=== PATIENT | female | born 1960 | race Caucasian/White ===

== ENCOUNTER 2022-02-21 07:23 | Outpatient (CLI) | payer BC, SELFPAY ==
--- NOTE | ~2022-02-21 | DEXA_ITS ---
Bone Density Report Name: DENA SEQUEIRA Age: 61 Sex: Female Ethnicity: White Date of : 1960 Indication: postmenopausal; screening for osteoporosis; height loss; Referring Provider: Luigi, Emely Mcgrath Study: Bone densitometry was performed. Exam Date: February 21, 2022 Accession number: [id number] Bone Density: Region BMD T-score Z-score Classification AP Spine(L1-L4) 1.206 1.4 3.0 Normal Femoral Neck (Left) 0.648 -1.8 -0.4 Osteopenia Total Hip (Left) 0.861 -0.7 0.4 Normal Femoral Neck (Right) 0.676 -1.6 -0.2 Osteopenia Total Hip (Right) 0.850 -0.8 0.3 Normal Femoral Neck Mean 0.662 -1.7 -0.3 Osteopenia Total Hip Mean 0.856 -0.7 0.4 Normal World Health Organization criteria for BMD impression classify patients as: Normal (T-score at or above -1.0), Osteopenia (T-score between -1.0 and -2.5), or Osteoporosis (T-score at or below -2.5). 10-year Fracture Risk(1): Major Osteoporotic Fracture 11% Hip Fracture 2.3% Reported Risk Factors: [place] (), Neck BMD=0.648, BMI=32.9, smoking, alcohol use (1) FRAX(R) Version 3.08. Fracture probability calculated for an untreated patient. Fracture probability may be lower if the patient has received treatment. Clinical Information Provided by Patient: Smokes Has 3 or more alcoholic drinks per day Patient maximum height was 68 Menopause Age: 51 No regular weight bearing exercise Drinks caffeinated beverages Onset of menses at age 12 Number of children 1 Impression: The patient has low bone mass, based on the Left Femoral Neck T-score. The patient has risk factors, including: smoking, excessive alcohol use. Discussion: BONE DENSITY IS LOW AT ONE OR MORE SKELETAL SITES. This patient's lowest T-score is low at one or more skeletal sites. It meets the World Health Organization's (WHO) criteria for ?low bone mass? (T-score between -1.0 and -2.5). The patient's 10-year risk of fracture as calculated by FRAX is less than the threshold where pharmacological therapy is recommended by the National Osteoporosis Foundation (NOF). However, all treatment decisions require clinical judgment and consideration of individual patient factors, including patient preferences, comorbidities, previous drug use, risk factors not captured in the FRAX model (e.g., frailty, falls, vitamin D deficiency, increased bone turnover, interval significant decline in bone density) and possible under or overestimation of fracture risk by FRAX. The patient should follow a healthful lifestyle (good nutrition with adequate calcium and vitamin D, and appropriate weight-bearing exercise). Follow-Up: Consider repeating this study in 2 to 3 years to reassess this patient's status, or sooner if there is some new clinical indication. Reported
--- NOTE | ~2022-02-21 | CT_ITS ---
EXAMINATION: CT lung screening DATE: 02/21/2022 08:21 INDICATION: History of tobacco dependence. TECHNIQUE: Computed tomography (CT) of the chest was performed without intravenous contrast. The dose -length product was 186.96 mGy-cm. Automated exposure control and iterative reconstruction technique were employed. COMPARISON: No prior studies for comparison. FINDINGS: Heart size is normal. No significant pleural or pericardial effusion. There is a small fat- containing hernia posterior margin of the right lower thorax. No thoracic lymphadenopathy. There is a fissural nodule measuring 5 mm on the right, image 45. There is focal pleural thickening and postsur gical change in the right upper lobe. There is a 5 mm right lower lobe nodule at the pleural surface posteriorly, image 57. No endobronchial lesions. Mild emphysema. No pneumothorax. There is a 4 mm fis sural nodule on the right, image 57. There is a 5 mm pleural-based nodule in the left lower lobe post eriorly, image 61. No focal airspace consolidation. Mild thoracic spondylosis. IMPRESSION: 1. Lung-RADS category 2: Benign appearance or behavior. Continue annual screening with noncontrast lo w-dose chest CT in 12 months. Reviewed, dictated and finalized at location A. IMPRESSION: 1. Lung-RADS category 2: Benign appearance or behavior. Continue annual screeni ng with noncontrast low-dose chest CT in 12 months.
--- NOTE | ~2022-02-21 | US_ITS ---
US thyroid INDICATION: Hyperthyroidism TECHNIQUE: Real-time sonographic images of the thyroid gland were obtained. COMPARISON: No prior studies for comparison. FINDINGS: The right thyroid lobe measures 4.2 x 1.1 x 0.9 cm. The left thyroid lobe measures 3.5 x 1 .1 x 1 cm.. There is heterogeneous thyroid echotexture bilaterally with multiple small cysts. No denilson d thyroid masses are identified. There are normal-appearing bilateral cervical lymph nodes. Normal va scular flow is present. IMPRESSION: 1. Heterogeneous thyroid echotexture with multiple bilateral thyroid cysts, likely benign. Reviewed, dictated and finalized at location A. IMPRESSION: 1. Heterogeneous thyroid echotexture with multiple bilateral thyroid cysts, li rebeca benign.
--- NOTE | ~2022-02-21 | MM_ITS ---
EXAMINATION: MM screening vincent BI w lopez HISTORY: Screening mammogram TECHNIQUE: Craniocaudal and mediolateral oblique 3-D tomosynthesis images were obtained and synthetic 2-D images were generated. CAD analysis was submitted and interpreted. COMPARISON: 01/31/2018 BREAST PARENCHYMAL COMPOSITION: There are scattered areas of fibroglandular density. FINDINGS: There is no suspicious mass, calcification, or architectural distortion to suggest malignan cy in either breast. There has been no suspicious interval change. IMPRESSION: 1. No mammographic evidence of malignancy. 2. Recommend routine screening mammography in one year. BI-RADS Category 1: Negative Reviewed, dictated and finalized at location A.
== END 2022-02-21 07:24 | disposition home or self-care (01) ==
PROVIDERS: PCP Internal Medicine; Visit Provider Nurse Practitioner Family
DX: Z12.31 Encounter for screening mammogram for malignant neoplasm of breast (principal); Z78.0 Asymptomatic menopausal state; E05.90 Thyrotoxicosis, unspecified without thyrotoxic crisis or storm; Z12.2 Encounter for screening for malignant neoplasm of respiratory organs; Z87.891 Personal history of nicotine dependence
CPT/HCPCS: 71271; 76536; 77063; 77067; 77080

== ENCOUNTER 2022-03-16 09:08 | Outpatient (CLI) | payer BC, SELFPAY ==
--- NOTE | ~2022-03-16 | US_ITS ---
EXAMINATION: US right upper quadrant DATE: 03/16/2022 10:05 INDICATION: Elevated liver enzymes TECHNIQUE: Multiple grayscale and Doppler ultrasound images of the abdomen were obtained. COMPARISON: None FINDINGS: The pancreatic head and body are normal in appearance. The pancreatic tail is not visualized. Liver has normal contour, with a smooth surface. There is increased parenchymal echogenicity and coarsened echotexture consistent with diffuse hepatic steatosis. No liver lesion identified. No intrahepatic b iliary duct dilation suspected. Portal venous flow was seen in the hepatopetal, normal direction and has normal Doppler waveform. The gallbladder is normal in appearance. There is no cholelithiasis. Th e common bile duct measures 3 mm, which is normal. Sonographic Ramírez sign was reported as negative b y the chore tender.Visualized portion of the right kidney demonstrates normal contour and echogenicity with no hydronephrosis. IMPRESSION: 1. Diffuse hepatic steatosis. Reviewed, dictated and finalized at location B.
== END 2022-03-16 09:09 | disposition home or self-care (01) ==
LOC: CHSIMG 09:10
PROVIDERS: PCP Internal Medicine; Visit Provider Internal Medicine
DX: R94.5 Abnormal results of liver function studies (principal)
CPT/HCPCS: 76705

== ENCOUNTER 2022-07-07 15:02 | Outpatient (CLI) | payer BC, SELFPAY ==
--- NOTE | ~2022-07-07 | XR_ITS ---
EXAMINATION: XR foot RT min 3V DATE: 07/07/2022 15:47 INDICATION: Psoriatic arthritis. TECHNIQUE: 3 views of right foot standing were obtained. COMPARISON: None. FINDINGS: There is moderate hallux valgus. No fracture. There is mild osteoarthritis of first metatar sophalangeal joint and some of the interphalangeal joints and midfoot joints. There is screw fixation of distal tibia. There is plate and screw fixation of distal fibula. IMPRESSION: 1. Mild polyarticular osteoarthritis. 2. Moderate hallux valgus. Reviewed, dictated and finalized at location A. GER FLOAT
--- NOTE | ~2022-07-07 | XR_ITS ---
EXAMINATION: XR sacroiliac joints min 3V DATE: 07/07/2022 15:47 INDICATION: Psoriatic arthritis. TECHNIQUE: 3 views of the sacroiliac joints were obtained. COMPARISON: None. FINDINGS: Bone alignment is normal. No fracture. There is severe lumbar spondylosis. There is mild os teoarthritis of the sacroiliac joints. There is moderate right hip osteoarthritis and mild left hip o steoarthritis. IMPRESSION: 1. Mild osteoarthritis of the sacroiliac joints. No evidence of inflammatory arthropathy. Reviewed, dictated and finalized at location A. T ROCK LAYER IMPRESSION: 1. Mild osteoarthritis of the sacroiliac joints. No evidence of inflammatory ar thropathy.
--- NOTE | ~2022-07-07 | XR_ITS ---
EXAMINATION: XR hand BI arthritis min 3V DATE: 07/07/2022 15:47 INDICATION: Psoriatic arthritis. TECHNIQUE: 4 views of right hand and 4 views of left hand on a total of 7 radiographs were obtained. COMPARISON: None. FINDINGS: RIGHT HAND: Bone alignment is normal. No fracture. There is mild osteoarthritis of first carpometacar pal joint and third and fourth proximal interphalangeal joints. LEFT HAND: Bone alignment is normal. No fracture. There is moderate osteoarthritis of first carpometa carpal joint and mild osteoarthritis of second distal interphalangeal joint. IMPRESSION: 1. Polyarticular osteoarthritis. No evidence of inflammatory arthropathy. Reviewed, dictated and finalized at location A. INSERTER
--- NOTE | ~2022-07-07 | XR_ITS ---
EXAMINATION: XR foot LT min 3V DATE: 07/07/2022 15:47 INDICATION: Psoriatic arthritis. TECHNIQUE: 3 views of left foot standing were obtained. COMPARISON: None. FINDINGS: There is moderate hallux valgus. No fracture. There is mild osteoarthritis of first metatar sophalangeal joint and some the interphalangeal joints and midfoot joints. There is an enthesophyte a t plantar aspect of calcaneal tuberosity. IMPRESSION: 1. Polyarticular osteoarthritis. 2. Moderate hallux valgus. Reviewed, dictated and finalized at location A. NDER EMPLOYMENT SPECIALIST
== END 2022-07-07 15:03 | disposition home or self-care (01) ==
LOC: ANHIMG 15:06
PROVIDERS: PCP Internal Medicine
DX: L40.50 Arthropathic psoriasis, unspecified (principal); M19.041 Primary osteoarthritis, right hand; M19.042 Primary osteoarthritis, left hand; M53.3 Sacrococcygeal disorders, not elsewhere classified; M19.071 Primary osteoarthritis, right ankle and foot; M20.11 Hallux valgus (acquired), right foot; M19.072 Primary osteoarthritis, left ankle and foot; M20.12 Hallux valgus (acquired), left foot
CPT/HCPCS: 72202; 73130; 73630

== ENCOUNTER 2023-06-09 16:16 | Emergency (ER) | payer BC, SELFPAY ==
[2023-06-09 16:48] VITALS: BP 177/91; PULSE 78; RESP 18; TEMP 36.4; O2SAT 98
--- NOTE | 2023-06-09 16:50 | ED.FEMALEGU ---
HPI - Female Genitourinary General Chief complaint: Urogenital-Female Stated complaint: UTI Source: patient and RN notes reviewed Mode of arrival: ambulatory Limitations: no limitations History of Present Illness HPI Narrative: 62-year-old female presented for complaint of pressure with urinating, onset today. Endorses 2 days ago bilateral lower back pain, for which she increased water intake, used heating pad, and took aleve. States today pain is resolved. denies hematuria, nausea, vomiting, abdominal pain, flank pain, constipation, diarrhea, fevers or chills. Review of Systems Review of Systems: CONSTITUTIONAL: Denies body aches, fever, chills, or sweats. CARDIOVASCULAR: Denies chest pain, palpitations, or edema. RESPIRATORY: Denies cough or dyspnea. GASTROINTESTINAL: Denies abdominal pain, nausea, vomiting, or diarrhea. GENITOURINARY: Reports dysuria, denies frequency, urgency, hematuria, flank pain SKIN: Denies rash, itching, or wounds. MUSCULOSKELETAL: Denies back pain or myalgia. [facility] Past Medical History Medical History (Updated 06/09/23 @ 17:00 by Shahida Ramirez, [employer] OPERATOR) No pertinent past medical history Comments At time of signature, I have reviewed and agree with nursing past medical, surgical, social and family history unless otherwise noted. Please see nursing chart for further information. There is no relevant family history pertinent to the presenting complaint Exam Narrative: GENERAL: Well-appearing and in no acute distress. ENT: Mucous membranes pink and moist. NECK: Normal AROM. Supple. CHEST: No respiratory distress. Clear to auscultation. HEART: Regular rate and rhythm. ABDOMEN: Soft, nontender, nondistended, normal active bowel sounds. No CVA tenderness SKIN: Warm, dry, no rash. NEURO: No focal deficits. Alert and oriented x3. Gait steady. PSYCH: Normal affect. Course Course Emergency Course: Patient is aware of diagnosis, understands and agrees to treatment plan. Anticipatory guidance given. Patient agrees to follow-up as directed and is aware of reasons to seek care at the emergency department. Portions of this record may have been created with voice recognition software Level of Care: Express Care Visit Vital Signs Vital signs: Reviewed MDM - Female Genitourinary MDM Narrative Medical decision making narrative: Results of urine reviewed with patient. Discussed physical exam findings. Advised supportive measures and signs/symptoms to go to the ER. Pt is appropriate for outpt treatment and f/u. Differential Diagnosis Differential diagnosis: Likely urinary tract infection and cystitis Lab Data Labs: Urine Glucose Negative Reference Range: Negative Urine Bilirubin Negative Reference Range: Negative Urine Ketone Negative Reference Range: Negative Urine Specific [place] 1.010 Reference Range:1.001-1.035 Urine Blood Negative Reference Range: Negative * * Urine pH 5.5 Reference Range: 5.0-9.0 Urine Protein Negative Reference Range: Negative Urine Urobilinogen 0.2 Reference Range: 0.2-1.0 Urine Nitrate Negative Reference Range: Negative Urine Leukocyte Negative Reference Range: Negative Urine Color Yellow
== END 2023-06-09 17:00 | disposition home or self-care (01) ==
PROVIDERS: Emergency Provider Nurse Practitioner Family; PCP Internal Medicine
DX: R30.0 Dysuria (principal)
CPT/HCPCS: 81003; 87086; 99213; G0463

== ENCOUNTER 2023-12-12 10:21 | Emergency (ER) | payer BC, SELFPAY ==
--- NOTE | ~2023-12-12 | XR_ITS ---
XR abdomen/kub 1V Ordering provider: Raven Wolfe NP History: . left Flank pain . Comparison: None. FINDINGS: BOWEL: Nonobstructive bowel gas pattern. ORGANOMEGALY: None. SIGNIFICANT PATHOLOGIC CALCIFICATIONS: None. OTHER: No free air is seen under the diaphragm. Degenerative changes of the spine. IMPRESSION: NO ACUTE ABDOMINAL FINDINGS. Reviewed, dictated and finalized at location A.
[2023-12-12 10:30] VITALS: BP 151/76; PULSE 72; RESP 18; TEMP 36.6; O2SAT 100
--- NOTE | 2023-12-12 10:48 | ED.BACK ---
HPI - Back Pain/Injury General Chief Complaint: Back Pain/Injury Stated Complaint: lower back pain Time Seen by Provider: 12/12/23 10:45 Source: patient and RN notes reviewed Mode of arrival: ambulatory Limitations: no limitations History of Present Illness HPI Narrative: 63-year-old female presents concern for acute onset of left flank pain. Reports that started when she woke up this morning. She reports it ?takes her breath away?. She denies dysuria, frequency, urgency, hematuria. Reports pain is not dependent on movements. She reports 1 episode of vomiting today MD elicited complaint: back pain Related Data Home Medications Medication Instructions Recorded Confirmed No Home Medications 12/12/23 12/12/23 Allergies Allergy/AdvReac Type Severity Reaction Status Date / Time Penicillins Allergy Unknown Verified 12/12/23 10:36 Review of Systems Review of Systems: CONSTITUTIONAL: Denies malaise, chills, sweats, or fever. GASTROINTESTINAL: Denies abdominal pain. Reports nausea, 1 episode of vomiting GENITOURINARY: Denies dysuria, hematuria, frequency, loss of bladder function. SKIN: Denies rash or itching. MUSCULOSKELETAL: Denies low back pain. Reports left flank pain NEUROLOGIC: Denies numbness, weakness, or headache. All systems reviewed & are unremarkable except as noted in HPI and below PMFSH Past Medical History Medical History (Updated 12/12/23 @ 11:33 by Raven Wolfe NP) No pertinent past medical history Comments At time of signature, agree with nursing past medical, surgical, social and family history. There is no relevant family history pertinent to the presenting complaint Exam Narrative: GENERAL: Well-appearing, well-nourished, and in no acute distress. HEAD: Normocephalic, atraumatic. EYES: PERRLA and EOMI. NECK: Supple. CHEST: Clear to auscultation. No respiratory distress. HEART: Regular rate and rhythm. ABDOMEN: Soft, nontender, nondistended. Left CVA tenderness MUSCULOSKELETAL: Normal range of motion and strength in all extremities. SKIN: Warm, dry, no rash. NEURO: No focal deficits. PSYCH: Normal mood and affect Course Course Emergency Course: Patient is aware of, understands and agrees to be transferred to the emergency room. Patient agrees to proceed directly to the emergency department. Portions of this record may have been created with voice recognition software Level of Care: Express Care Visit Vital Signs Vital signs: Vital Signs Temperature 98 F 12/12/23 10:30 Pulse Rate 72 12/12/23 10:30 Respiratory Rate 18 12/12/23 10:30 Blood Pressure 151/76 H 12/12/23 10:30 Pulse Oximetry 100 12/12/23 10:30 Oxygen Delivery Room Air 12/12/23 10:30 Temperature 98 F 12/12/23 10:30 Pulse Rate 72 12/12/23 10:30 Respiratory Rate 18 12/12/23 10:30 Blood Pressure 151/76 H 12/12/23 10:30 Pulse Oximetry 100 12/12/23 10:30 Oxygen Delivery Room Air 12/12/23 10:30 Reviewed. Transfer Transfered to: [place] Transportation: Other (private vehicle) Transfer rationale: Flank pain Accepting physician: Karel MDM - Back Pain/Injury MDM Narrative Medical decision making narrative: Patient's symptoms and exam warrant further evaluation emergency room, patient is nontoxic appearing and in no acute distress Imaging Data My impression: Images reviewed, interpreted by radiologist, agree, see report. Radiologist's impression: XR abdomen/kub 1V Ordering provider: Raven Wolfe NP History: . left Flank pain . Comparison: None. FINDINGS: BOWEL: Nonobstructive bowel gas pattern. ORGANOMEGALY: None. SIGNIFICANT PATHOLOGIC CALCIFICATIONS: None. OTHER: No free air is seen under the diaphragm. Degenerative changes of the spine. IMPRESSION: NO ACUTE ABDOMINAL FINDINGS. Critical Care Time Critical Care Time Critical Care Time: No Discharge Plan Discharge Clinical Impression: Acute flank pain
[2023-12-12 11:26] LABS: EDUAAPPEAR Clear; EDUABILI Negative; EDUABLOOD Negative; EDUACOLOR1 Yellow; EDUAGLUCOSE Negative; EDUAKETONE Negative; EDUALEUKO Negative; EDUANITRATE Negative; EDUAPROTEIN Negative; EDUAUROBILI 0.2
== END 2023-12-12 11:38 | disposition short-term general hospital (02) ==
PROVIDERS: Emergency Provider Nurse Practitioner; PCP Internal Medicine
DX: R10.9 Unspecified abdominal pain (principal)
CPT/HCPCS: 74018; 81003; 99213; G0463

== ENCOUNTER 2023-12-12 11:56 | Emergency (ER) | payer BC, SELFPAY ==
[2023-12-12] VITALS (14 sets, daily range): BP systolic 123–146; BP diastolic 74–88; PULSE 61–71; RESP 13–36; TEMP 35.9; O2SAT 97–100
--- NOTE | ~2023-12-12 | CT_ITS ---
EXAMINATION: CT abdomen pelvis wo con DATE: 12/12/2023 13:40 INDICATION: Left flank pain TECHNIQUE: Computed tomography (CT) of the abdomen and pelvis was performed without intravenous contr ast. Automated exposure control and iterative reconstruction technique were employed. The dose-length product was 993.79 mGy-cm. COMPARISON: Chest CT dated 02/21/2022 FINDINGS: Chronic fat-containing Bochdalek hernia at the right posterior sulcus. Stable appearance of mild scat tered pleural thickening most prominent at the right azygos esophageal recess. Mild bibasilar atelect asis. Heart size normal. No pericardial or pleural effusion. Small sliding-type hiatal hernia. Diffus e hepatic steatosis. Gallbladder, spleen, pancreas, bilateral adrenal glands and kidneys are normal. No urolithiasis. Bladder, anteverted uterus and bilateral adnexa are unremarkable. There is mild colo kinga diverticulosis with a sigmoid predominance. There is no adjacent inflammatory change to suggest diverticulitis. No free intraperitoneal gas or fluid. No pathologically enlarged abdominal or pelvic lymphadenopathy. Severe lumbar spondylosis. IMPRESSION: 1. No urolithiasis or acute intra-abdominal/pelvic process. 2. Mild diverticulosis. 3. Diffuse hepatic steatosis. 4. Small sliding-type hiatal hernia. Reviewed, dictated and finalized at location A.
[2023-12-12 12:27] LABS: Basophils Absolute Auto 0.1 K/mm3 (0.0-0.1); Basophils Percent Auto 1.3 % (0.2-1.2); Eosinophils Absolute Auto 0.8 K/mm3 (0-0.3); Eosinophils Percent Auto 9.4 % (0-4.4); Hematocrit 47.5 % (37.0-47.0); Hemoglobin 15.6 g/dL (12.0-15.0); Immature Granulocyte Absolute 0.03 K/mm3 (0.00-0.031); Immature Granulocyte Percent A 0.4 % (0-0.5); Lymphocytes Absolute Auto 2.51 K/mm3 (0.9-3.2); Lymphocytes Percent Auto 29.5 % (18.3-44.2); Mean Corpuscular HGB Conc 32.8 g/dl (32-36); Mean Corpuscular Hemoglobin 32.1 pg (26-34); Mean Corpuscular Volume 97.7 fl (80-100); Mean Platelet Volume 10.7 fl (7.4-10.4); Monocytes Absolute Auto 0.6 K/mm3 (0.1-0.6); Monocytes Percent Auto 6.9 % (2.6-8.5); Neutrophils Absolute Auto 4.5 K/mm3 (1.3-6.7); Neutrophils Percent Auto 52.5 % (45.5-73.1); Platelet Count Result 268 k/mm3 (150-375); Red Blood Count 4.86 M/mm3 (4.2-5.4); Red Cell Distribution Width 14.2 % (11.5-14.5); White Blood Count 8.5 K/mm3 (4.5-10.0)
[2023-12-12 12:33] LABS: Alanine Aminotransferase 31 U/L (6-35); Albumin Level 4.9 g/dL (3.5-5.1); Alkaline Phosphatase 104 U/L (38-126); Anion Gap 13 mmol/L (4-12); Aspartate Amino Transferase 30 U/L (14-36); Bilirubin,Total 0.6 mg/dL (0.2-1.3); Blood Urea Nitrogen 16 mg/dL (7-17); Calcium 9.5 mg/dL (8.4-10.2); Carbon Dioxide 22 mmol/L (22-30); Chloride 106 mmol/L (98-107); Estimated CRCL calculation 72 ml/min; Estimated Glomerular Filt Rate > 60; Glucose 119 mg/dL (65-110); Sodium 141 mmol/L (137-145)
[2023-12-12] MEDS: KETOROLAC 30 MG/ML VIAL (*BKC) IV PUSH (13:34)
--- NOTE | 2023-12-12 13:35 | PC.NURSE ---
patient provided a urine specimen at , provider aware and results are viewable
--- NOTE | 2023-12-12 14:51 | ED.GENADULT ---
HPI - General Adult General Chief complaint: Abdominal Pain Stated complaint: kidney stone Time Seen by Provider: 12/12/23 12:31 History of Present Illness HPI narrative: This is a 63-year-old female, with no significant past medical history, who presents emergency department complaining of left. She states he has been gradually worsening over the past week. Today she rates her pain 8/10 without radiation. She denies associated fevers, chills, vomiting, dysuria with blood in the urine or trauma. She has no other complaints at this time. Related Data Allergies Allergy/AdvReac Type Severity Reaction Status Date / Time Penicillins Allergy Unknown Verified 12/12/23 11:56 sulfamethoxazole Allergy Unknown Verified 12/12/23 12:21 [From Bactrim] trimethoprim [From Bactrim] Allergy Unknown Verified 12/12/23 12:21 Review of Systems Review of Systems: All systems reviewed & are unremarkable except as noted in HPI and below PMFSH Past Medical History Medical History No pertinent past medical history No significant past medical history Surgical History Surgical History No significant past surgical history Social History Social History Smoking status: Current some day smoker Alcohol intake: current Substance use: never Exam Narrative: GENERAL: Well-developed, well-nourished, and in no acute distress. HEAD: Normocephalic, atraumatic. EYES: PERRLA and EOMI. CHEST: Clear to auscultation. No respiratory distress. No wheezes rales or rhonchi HEART: Regular rate and rhythm. No murmur heard. Normal peripheral pulses. ABDOMEN: Soft, nontender, nondistended, normal active bowel sounds. Left CVA tenderness to palpation EXTREMITIES: Normal range of motion. No edema. SKIN: Warm, dry, no rash. NEURO: Alert and oriented x3. No focal deficit. Moving all 4 limbs spontaneously PSYCH: Normal mood and affect. Course Course Emergency Course: 14:48 - Urinalysis not concerning for UTI or hematuria. CBC demonstrates and elevated hemoglobin of 15.6 but is otherwise unremarkable. Chemistries unremarkable. CT abdomen pelvis not concerning for acute intra-abdominal process. On re-evaluation after Toradol, the patient states her pain is nearly resolved. I suspect musculoskeletal strain as a cause of her pain. Will discharge with muscle relaxers, lidocaine patches and recommendation for primary care follow-up. I discussed the findings and recommendations with the patient. Discussed return and emergency precautions including signs/symptoms of acute abdomen and intractable vomiting. The patient voiced understanding and agreement with the plan. All questions answered to her satisfaction. Vital Signs Vital signs: Vital Signs Temperature 96.7 F L 12/12/23 12:00 Pulse Rate 68 12/12/23 12:00 Respiratory Rate 18 12/12/23 12:00 Blood Pressure 146/76 H 12/12/23 12:00 Pulse Oximetry 100 12/12/23 12:00 Oxygen Delivery Room Air 12/12/23 12:00 Temperature 96.7 F L 12/12/23 12:00 Pulse Rate 68 12/12/23 12:00 Respiratory Rate 18 12/12/23 12:00 Blood Pressure 146/76 H 12/12/23 12:00 Pulse Oximetry 100 12/12/23 12:00 Oxygen Delivery Room Air 12/12/23 12:00 Medical Decision Making [facility] Narrative Medical decision making narrative: Plan: Labs, imaging, pain control, reassess Differential Diagnosis Differential Diagnosis: Kidney stone, pyelonephritis, musculoskeletal strain, diverticulitis, metabolic abnormality, other Vital Signs Vital Signs: Vital Signs Temperature 96.7 F L 12/12/23 12:00 Pulse Rate 68 12/12/23 12:00 Respiratory Rate 18 12/12/23 12:00 Blood Pressure 146/76 H 12/12/23 12:00 Pulse Oximetry 100 12/12/23 12:00 Oxygen Delivery Room Air 12/12/23 12:00 Temperature 96.7 F L 12/12/23 12:00 Puls
== END 2023-12-12 14:59 | disposition home or self-care (01) ==
PROVIDERS: Emergency Medicine; Emergency Provider Preventive Medicine Aerospace Medicine; PCP Internal Medicine
DX: R10.9 Unspecified abdominal pain (principal); F17.200 Nicotine dependence, unspecified, uncomplicated; K57.90 Diverticulosis of intestine, part unspecified, without perforation or abscess without bleeding; K76.0 Fatty (change of) liver, not elsewhere classified; K44.9 Diaphragmatic hernia without obstruction or gangrene
CPT/HCPCS: 36415; 74018; 74176; 80053; 81003; 85025; 96374; 99284; J1885